=== PATIENT | female | born 1990 | race African-American/Black ===

== ENCOUNTER 2020-08-19 08:29 | Emergency (ER) | payer OTHER ==
[~2020-08-19] VITALS: Ht 160 cm; Wt 104.3 kg
[2020-08-19] MEDS ORDERED: PROAIR HFA8.5 GM INH (08:41)
[2020-08-19 09:08] LABS: ABSOLUTE NEUTROPHILS 3.9 thou/uL (1.4-8.2); BASOPHILS 1.1 % (0.0-2.0); EOSINOPHILS 2.3 % (0.0-3.0); HEMATOCRIT 34.4 % (37.0-47.0); HEMOGLOBIN 10.7 gm/dL (12.0-15.0); LYMPHOCYTES 31.8 % (24.0-44.0); MCH 22.9 pg (26.0-34.0); MCHC 31.1 g/dL (28.0-37.0); MCV 73.7 fL (80.0-100.0); PLATELET COUNT 493 thou/uL (150-400); POLYS 56.8 % (36.0-66.0); RBC 4.66 mil/uL (4.20-5.00); RDW 19.8 % (10.5-14.5); WBC 6.9 thou/uL (4.0-11.0)
[2020-08-19 09:20] LABS: CALCIUM 8.7 mg/dL (8.5-10.1)
[2020-08-19 09:26] LABS: ALBUMIN 3.5 g/dL (3.4-5.0); TOTAL BILIRUBIN 0.1 mg/dL (0.2-1.0); TOTAL PROTEIN 7.7 g/dL (6.4-8.2)
[2020-08-19 10:39] LABS: ANISOCYTOSIS 1+; HYPOCHROMASIA 1+; OVALOCYTES FEW; POIKILOCYTOSIS 1+; TEARDROPS OCCASIONAL
[2020-08-19] MEDS ORDERED: NORCO5 PO (11:05)
[2020-08-19 11:51] VITALS: BP 139/87
== END 2020-08-19 11:55 | disposition home or self-care (01) ==
LOC: ER 08:29
PROVIDERS: Emergency Medicine
DX: R10.13 Epigastric pain (principal); R10.11 Right upper quadrant pain; R10.9 Unspecified abdominal pain; J45.909 Unspecified asthma, uncomplicated; F19.90 Other psychoactive substance use, unspecified, uncomplicated; F17.200 Nicotine dependence, unspecified, uncomplicated; Z72.89 Other problems related to lifestyle; Z79.899 Other long term (current) drug therapy

== ENCOUNTER 2020-09-07 11:55 | Emergency (ER) | payer OTHER ==
[~2020-09-07] VITALS: Ht 160 cm; Wt 104.3 kg
[~2020-09-07 11:55] MED LIST: NORCO5 PO; PROAIR HFA8.5 GM INH
[2020-09-07 12:06] VITALS: BP 143/90
[2020-09-07 13:44] LABS: CALCIUM 8.5 mg/dL (8.5-10.1)
[2020-09-07 13:47] LABS: ABSOLUTE NEUTROPHILS 3.2 thou/uL (1.4-8.2); BASOPHILS 0.8 % (0.0-2.0); EOSINOPHILS 2.9 % (0.0-3.0); HEMATOCRIT 33.8 % (37.0-47.0); HEMOGLOBIN 10.6 gm/dL (12.0-15.0); LYMPHOCYTES 41.3 % (24.0-44.0); MCH 23.3 pg (26.0-34.0); MCHC 31.4 g/dL (28.0-37.0); MCV 74.3 fL (80.0-100.0); MONOCYTES 7.4 % (1.0-8.0); PLATELET COUNT 513 thou/uL (150-400); POLYS 47.6 % (36.0-66.0); RBC 4.55 mil/uL (4.20-5.00); RDW 18.5 % (10.5-14.5); WBC 6.7 thou/uL (4.0-11.0)
[2020-09-07] MEDS ORDERED: AUGMENTIN 875-1 EACH PO (14:36)
[2020-09-07] MEDS ORDERED: HYDROCODON-ACE1 EAC7 PO (14:36)
[2020-09-07 15:05] LABS: ANISOCYTOSIS 1+; HYPOCHROMASIA 1+; MICROCYTES 1+
== END 2020-09-07 14:41 | disposition home or self-care (01) ==
LOC: ER 11:55
PROVIDERS: Nurse Practitioner
DX: H92.01 Otalgia, right ear (principal); J45.909 Unspecified asthma, uncomplicated; Z79.51 Long term (current) use of inhaled steroids